=== PATIENT | female | born 1995 | race Caucasian/White ===

== ENCOUNTER 2021-08-22 15:49 | Emergency (ER) | payer MEDICAID, SELFPAY ==
[2021-08-22 16:03] VITALS: BP 135/83; BP 99/50; PULSE 102; RESP 16; TEMP 37.3; O2SAT 97; BMI 23.4
--- NOTE | 2021-08-22 16:56 | ED_ITS ---
HPI - General Adult General Chief complaint: General Medical Stated complaint: numbness down bilateral legs Time Seen by Provider: 08/22/21 16:10 Source: patient Mode of arrival: ambulatory Limitations: no limitations History of Present Illness HPI narrative: Patient with no significant back problems noticed lower back pain and bilateral leg numbness started and after noon today no nausea no vomiting no diarrhea no urinary symptoms patient did have some low-grade fever also complaining of mild sore throat patient already been vaccinated against COVID-19 check the home COVID-19 test at home which was negative, on arrival patient temperature was 101.6 degrees denies any IV drug use no bladder or bowel involvement able to ambulate. Related Data Previous Rx's Medication Instructions Recorded ibuprofen 600 mg tablet 600 mg PO Q6H PRN #20 tab 08/22/21 Allergies Allergy/AdvReac Type Severity Reaction Status Date / Time No Known Allergies Allergy Verified 08/22/21 17:08 Review of Systems Review of Systems: Yes all other systems are reviewed and are negative [facility] Social History Social History Advance Directives: No Advance Directives Information Provided: No Physical Exam ED Vital Signs: Vital Signs - 24 hr 08/22/21 16:03 Temperature 99.1 F Pulse Rate 102 H Respiratory Rate 16 Blood Pressure 135/83 Pulse Oximetry 97 BMI result Body Mass Index 23.4 Appearance: Alert. Oriented X3. No acute distress. FEBRILE TO TOUCH TEMPERATURE 101.6 DEGREES Eyes: No pallor or icterus ENT: Pharynx normal. Oral Mucosa moist Neck: Normal inspection. Neck supple. CVS: Normal heart rate and rhythm. Pulses normal. Respiratory: No respiratory distress. Equal air entry bilateral, no wheezing/rales/rhonchi Abdomen: Soft and nontender. Bowel sounds are present, no mass palpable, no CVA tenderness Skin: Skin warm and dry. Normal skin color. Normal skin turgor. Back: No focal tenderness of the back patient able to ambulate reflexes normal sensation normal Extremities: No lower extremity edema. No calf tenderness Neuro: Oriented X 3. No motor deficit. No sensory deficit.No cerebellar signs , cranial nerves II-XII intact DTR 2 + Medical Decision Making MDM Narrative Medical decision making narrative: Patient with nonspecific weakness able to ambulate no focal tenderness of the spine not IV drug user sed rate normal CRP of 0.75 patient able to ambulate in the ER patient's symptoms is from COVID-19 with overall weakness at this time p atient has no shortness of breath saturating 97% at room air Lab Data Lab results reviewed: Yes I reviewed the patient's lab results. Result diagrams: 08/22/21 17:22 08/22/21 17:22 Labs: Lab Results 08/22/21 08/22/21 08/22/21 Range/Units 17:22 17:22 17:22 WBC 6.8 (4.8-10.8) X10*3/uL RBC 4.58 (4.20-5.50) X10*6/uL Hgb 14.0 (12.0-16.0) g/dl Hct 41.0 (37.0-47.0) % MCV 89.5 (80.0-98.0) fL MCH 30.6 (27.0-33.0) pg MCHC 34.1 (31.0-35.0) g/dl RDW 11.7 (11.0-16.0) % Plt Count 177 (160-400) X10*3/uL MPV 11.0 (9.4-12.3) fL Immature Gran % (Auto) 0.3 (0.0-0.4) % Neut % (Auto) 88.0 H (45-73) % Lymph % (Auto) 3.8 L (20-40) % [place] % (Auto) 7.5 (2-11) % Eos % (Auto) 0.0 (0-4) % Baso % (Auto) 0.4 (0-2) % Lymph # (Auto) 0.3 L (1.2-4.9) X10*3/uL [place] # (Auto) 0.5 (0.1-1.2) X10*3/uL Eos # (Auto) 0.0 (0.0-0.4) X10*3/uL Baso # (Auto) 0.0 (0.0-0.2) X10*3/uL Abs Immat Gran (auto) 0.02 (0.00-0.03) X10*3/uL Absolute Neuts (auto) 6.0 (2.0-8.3) x10*3/uL Absolute Nucleated RBC 0.000 (0.0-0.012) X10*3/uL Nucleated RBC % (auto) 0.0 (0.0-0.2) /100WBC ESR (0-20) MM/HR Sodium 139 (135-145) mmol/L Potassium 3.7 (3.3-5.1) mmol/L Chloride 105 (96-108) mmol/L Carbon Dioxide 24 (22-29) mmol/L Anion Gap 14 (12-20) BUN 8 L (9-16) mg/dL Creatinine 0.70 (0.5-1.4) mg/dL Estim Creat Clear Calc 104.2 Estimated GFR > 60 Random Glucose 94 (60-115) mg/dL Lactic Acid 1.0 (0.5-2.0) mmol/L Calcium 9.1 (8.4-10.2) mg/dL Total Bilirubin 0.5 (0.0-1.0) mg/dL AST 23 (5-31) U/L ALT 23 (0-31) U/L Alkaline Phosphatase 84 (39-117) U/L C-Reactive Protein 0.75 H (< or = 0.50) mg/dL Total Protein 6.9 (6.5-8.0) g/dL Albumin 4.4 (3.5-5.0) g/dL Urine Color Urine Appearance Urine pH (5.0-8.0) Ur Specific [place] (1.005-1.025) Urine Protein (NEG-TRACE) MG/DL Urine Glucose (UA) (NEG) MG/DL Urine Ketones (NEG) MG/DL Urine Blood (NEG) Urine Nitrite (NEG) Ur Leukocyte Esterase (NEG) COVID-19 (CARMELLA) (Negative) COVID-19 Clin Com Influenza Type A (WILBER) (Negative) Influenza Type B (WILBER) (Negative) Influenza A & B Note S. pyogenes GrpA WILBER (Negative) 08/22/21 08/22/21 08/22/21 Range/Units 17:22 17:30 17:30 WBC (4.8-10.8) X10*3/uL RBC (4.20-5.50) X10*6/uL Hgb (12.0-16.0) g/dl Hct (37.0-47.0) % MCV (80.0-98.0) fL MCH (27.0-33.0) pg MCHC (31.0-35.0) g/dl RDW (11.0-16.0) % Plt Count (160-400) X10*3/uL MPV (9.4-12.3) fL Immature Gran % (Auto) (0.0-0.4) % Neut % (Auto) (45-73) % Lymph % (Auto) (20-40) % [place] % (Auto) (2-11) % Eos % (Auto) (0-4) % Baso % (Auto) (0-2) % Lymph # (Auto) (1.2-4.9) X10*3/uL [place] # (Auto) (0.1-1.2) X10*3/uL Eos # (Auto) (0.0-0.4) X10*3/uL Baso # (Auto) (0.0-0.2) X10*3/uL Abs Immat Gran (auto) (0.00-0.03) X10*3/uL Absolute Neuts (auto) (2.0-8.3) x10*3/uL Absolute Nucleated RBC (0.0-0.012) X10*3/uL Nucleated RBC % (auto) (0.0-0.2) /100WBC ESR 5 (0-20) MM/HR Sodium (135-145) mmol/L Potassium (3.3-5.1) mmol/L Chloride (96-108) mmol/L Carbon Dioxide (22-29) mmol/L Anion Gap (12-20) BUN (9-16) mg/dL Creatinine (0.5-1.4) mg/dL Estim Creat Clear Calc Estimated GFR Random Glucose (60-115) mg/dL Lactic Acid (0.5-2.0) mmol/L Calcium (8.4-10.2) mg/dL Total Bilirubin (0.0-1.0) mg/dL AST (5-31) U/L ALT (0-31) U/L Alkaline Phosphatase (39-117) U/L C-Reactive Protein (< or = 0.50) mg/dL Total Protein (6.5-8.0) g/dL Albumin (3.5-5.0) g/dL Urine Color Urine Appearance Urine pH (5.0-8.0) Ur Specific [place] (1.005-1.025) Urine Protein (NEG-TRACE) MG/DL Urine Glucose (UA) (NEG) MG/DL Urine Ketones (NEG) MG/DL Urine Blood (NEG) Urine Nitrite (NEG) Ur Leukocyte Esterase (NEG) COVID-19 (CARMELLA) (Negative) COVID-19 Clin Com Influenza Type A (WILBER) Negative (Negative) Influenza Type B (WILBER) Negative (Negative) Influenza A & B Note See Note S. pyogenes GrpA WILBER Negative (Negative) 08/22/21 08/22/21 Range/Units 17:30 17:36 WBC (4.8-10.8) X10*3/uL RBC (4.20-5.50) X10*6/uL Hgb (12.0-16.0) g/dl Hct (37.0-47.0) % MCV (80.0-98.0) fL MCH (27.0-33.0) pg MCHC (31.0-35.0) g/dl RDW (11.0-16.0) % Plt Count (160-400) X10*3/uL MPV (9.4-12.3) fL Immature Gran % (Auto) (0.0-0.4) % Neut % (Auto) (45-73) % Lymph % (Auto) (20-40) % [place] % (Auto) (2-11) % Eos % (Auto) (0-4) % Baso % (Auto) (0-2) % Lymph # (Auto) (1.2-4.9) X10*3/uL [place] # (Auto) (0.1-1.2) X10*3/uL Eos # (Auto) (0.0-0.4) X10*3/uL Baso # (Auto) (0.0-0.2) X10*3/uL Abs Immat Gran (auto) (0.00-0.03) X10*3/uL Absolute Neuts (auto) (2.0-8.3) x10*3/uL Absolute Nucleated RBC (0.0-0.012) X10*3/uL Nucleated RBC % (auto) (0.0-0.2) /100WBC ESR (0-20) MM/HR Sodium (135-145) mmol/L Potassium (3.3-5.1) mmol/L Chloride (96-108) mmol/L Carbon Dioxide (22-29) mmol/L Anion Gap (12-20) BUN (9-16) mg/dL Creatinine (0.5-1.4) mg/dL Estim Creat Clear Calc Estimated GFR Random Glucose (60-115) mg/dL Lactic Acid (0.5-2.0) mmol/L Calcium (8.4-10.2) mg/dL Total Bilirubin (0.0-1.0) mg/dL AST (5-31) U/L ALT (0-31) U/L Alkaline Phosphatase (39-117) U/L C-Reactive Protein (< or = 0.50) mg/dL Total Protein (6.5-8.0) g/dL Albumin (3.5-5.0) g/dL Urine Color YELLOW Urine Appearance CLEAR Urine pH 7.0 (5.0-8.0) Ur Specific [place] 1.010 (1.005-1.025) Urine Protein NEG (NEG-TRACE) MG/DL Urine Glucose (UA) NEG (NEG) MG/DL Urine Ketones 40 (NEG) MG/DL Urine Blood NEG (NEG) Urine Nitrite NEG (NEG) Ur Leukocyte Esterase NEG (NEG) COVID-19 (CARMELLA) Positive A (Negative) COVID-19 Clin Com See Note Influenza Type A (WILBER) (Negative) Influenza Type B (WILBER) (Negative) Influenza A & B Note S. pyogenes GrpA WILBER (Negative) Discharge Plan Discharge Clinical Impression: COVID-19 Patient Disposition: Home, Self-Care Instructions: COVID-19 (Coronavirus Disease 2019) (ED) Additional Instructions: Keep hydrated Tylenol / Motrin for the fever body aches COVID-19 precautions as advised Report to the ER if increased shortness of breath Prescriptions: New ibuprofen 600 mg tablet 600 mg PO Q6H PRN (Reason: pain) Qty: 20 0RF
[2021-08-22 17:38] LABS: MANUAL DIFF FLAG NO
[2021-08-22 17:47] LABS: Appearance Urine CLEAR; Color Urine YELLOW; Glucose Urine UA NEG (NEG); Leukocyte Esterase Urine NEG (NEG); Nitrite Urine NEG (NEG); Urine Blood NEG (NEG); Urine Ketones 40 MG/DL (NEG); Urine Protein NEG (NEG-TRACE)
[2021-08-22 17:48] LABS: Basophils Percent Auto 0.4 % (0-2); Imm Gran Abs Auto 0.02 X10*3/uL (0.00-0.03); Imm Gran Pct Auto 0.3 % (0.0-0.4); Lymphocytes Absolute Auto 0.3 X10*3/uL (1.2-4.9); Lymphocytes Percent Auto 3.8 % (20-40); Mean Corpuscular HGB Conc 34.1 g/dl (31.0-35.0); Mean Corpuscular Hemoglobin 30.6 pg (27.0-33.0); Mean Corpuscular Volume 89.5 fL (80.0-98.0); Monocytes Absolute Auto 0.5 X10*3/uL (0.1-1.2); Monocytes Percent Auto 7.5 % (2-11); Platelet Count 177 X10*3/uL (160-400); Red Blood Count 4.58 X10*6/uL (4.20-5.50); Red Cell Distribution Width 11.7 % (11.0-16.0); White Blood Count 6.8 X10*3/uL (4.8-10.8)
[2021-08-22 17:52] LABS: COVID-19 Test Positive (Negative)
[2021-08-22 17:54] LABS: Strep A Nucleic Acid Negative (Negative)
[2021-08-22 17:56] LABS: Alanine Aminotransferase 23 U/L (0-31); Albumin Level 4.4 g/dL (3.5-5.0); Alkaline Phosphatase 84 U/L (39-117); Anion Gap 14 (12-20); Aspartate Amino Transferase 23 U/L (5-31); Bilirubin Total 0.5 mg/dL (0.0-1.0); Blood Urea Nitrogen 8 mg/dL (9-16); C Reactive Protein 0.75 mg/dL (< or = 0.50); Calcium 9.1 mg/dL (8.4-10.2); Carbon Dioxide 24 mmol/L (22-29); Chloride 105 mmol/L (96-108); Creatinine Clr Calc Pharmacy 104.2; Estimated Glomerular Filt Rate > 60; Glucose Random 94 mg/dL (60-115); Potassium 3.7 mmol/L (3.3-5.1); Sodium 139 mmol/L (135-145); Total Protein 6.9 g/dL (6.5-8.0)
[2021-08-22 18:01] LABS: IDNOW Serial# 16C4AD1C; Influenza A Negative (Negative); Influenza B2 Negative (Negative)
[2021-08-22] MEDS: 0.9 % Sodium Chloride 1,000 ML 999 ML IV (18:06)
[2021-08-22] MEDS: Ketorolac Tromethamine 30 MG/ML VIAL IVPUSH (18:09)
[2021-08-22 18:36] LABS: Erythrocyte Sedimentation Rate 5 MM/HR (0-20)
== END 2021-08-22 19:11 | disposition home or self-care (01) ==
PROVIDERS: Emergency Provider Internal Medicine
DX: U07.1 COVID-19 (principal); R50.9 Fever, unspecified
CPT/HCPCS: 36415; 80053; 81003; 83605; 85025; 85652; 86140; 87040; 87502; 87635; 87651; 96361; 96374; 99284; 99285; J1885

== ENCOUNTER 2022-07-21 08:30 | Emergency (ER) | payer OTHER, SELFPAY ==
--- NOTE | ~2022-07-21 | XR_ITS ---
EXAMINATION: XR KNEE, RIGHT CLINICAL INFORMATION: Fall with right knee pain COMPARISON: None TECHNIQUE: Four views of the right knee. FINDINGS: Bones and soft tissues are normal. No fracture or joint effusion. Alignment is anatomic. Joint spaces are well maintained. No abnormal soft tissue calcification. XR/XR knee RT 4V IMPRESSION: Normal right knee.
[2022-07-21 08:43] VITALS: BP 112/64; PULSE 82; RESP 20; TEMP 37.1; O2SAT 96; BMI 25.7
[2022-07-21] MEDS: Ibuprofen 800 MG TABLET PO (11:37)
--- NOTE | 2022-07-21 13:15 | PC.NURSE ---
suture site cleansed with ns followed by nonstick, followed by kerlix, tape and oleksandr wrap- well tolerated by pt
--- NOTE | 2022-07-21 13:16 | ED_ITS ---
HPI - General Adult General Chief complaint: Fall Stated complaint: Fall/R knee inj Time Seen by Provider: 07/21/22 11:00 Source: patient Mode of arrival: ambulatory Limitations: no limitations History of Present Illness HPI narrative: 26-year-old female presents to the ED for right knee pain after fall. Patient s tates she tripped due to slipping on ice and fell onto her right knee. Patient denies hitting head or loss of consciousness. Patient states no other physical complaints. Patient has right knee laceration Related Data Previous Rx's Medication Instructions Recorded ibuprofen 600 mg tablet 600 mg PO Q6H PRN pain #20 tabs 08/22/21 naproxen 500 mg tablet 500 mg PO BID PRN pain 7 days #14 07/21/22 tabs Allergies Allergy/AdvReac Type Severity Reaction Status Date / Time No Known Allergies Allergy Verified 08/22/21 17:08 Review of Systems Review of Systems: RIght knee laceration after fall Yes all other systems are reviewed and are negative [facility] Social History Social History Advance Directives: No Advance Directives Information Provided: No Physical Exam ED Vital Signs: Vital Signs - 24 hr 07/21/22 08:43 Temperature 98.8 F Pulse Rate 82 Respiratory Rate 20 Blood Pressure 112/64 Pulse Oximetry 96 Oxygen Delivery Method Room Air BMI result Body Mass Index 25.7 Const General: cooperative, healthy appearing, comfortable, no acute distress, well developed, alert, awake and Physically active Orientation/consciousness: oriented to person, oriented to place, oriented to time and patient oriented x3 HENMT Head: Yes normal to inspection, Yes No palpable skull fracture present, Yes normocephalic and Yes atraumatic Ears: hearing grossly normal bilaterally, external ears normal, TM normal on the left, EAC's normal and mastoids normal General nose exam: Normal external nose present and Normal nares present Face and sinus: Yes normal facial exam Mouth: Normal oral and palatal mucosa present and lip normal Throat: Yes posterior oropharynx normal, Yes tonsils normal and Yes uvula midline Eyes General: appearance normal, both eyes and all related structures Neck Neck: Yes normal visual inspection, Yes full ROM, Yes no lymphadenopathy, Yes no meningeal signs, Yes trachea midline, Yes supple, No anterior neck swelling and No tender Chest Chest palpation & inspection: normal inspection of the chest and normal palpation of entire chest wall Resp Effort & Inspection: normal respiratory effort and able to speak in complete sentences Auscultation: clear to auscultation bilaterally Cardio Jugular venous distension: no JVD Heart sounds: S1 normal heart sound present and S2 normal heart sound present GI Inspection: Yes normal to inspection and No abdominal wall ecchymosis Palpation (GI): Soft to palpation, not firm, nontender, no guarding and not rigid General: No CVA tenderness and Yes no CVA tenderness Back/Spine/Pelvis Back: no CVA tenderness, No CVA tenderness and No back tenderness Skin Other: Right knee laceration Neuro General: oriented to person, oriented to place, oriented to time, patient oriented x3, gait normal, tone normal, moves all extremities, Normal light touch and pain sensation, no meningeal signs, no focal motor deficits, CN's II-XI intact bilaterally and normal sensation to monofilament Extrem General: Yes normal to inspection and Yes full ROM Knee images: 1. Positive for laceration. Bleeding controlled. Patient has complete range o f motion of knee. Negative for crepitus, ecchymosis, erythema, or deformity. Motor/neuro/vascular exam of lower extremity intact Psych Appearance: grossly normal, well kempt and not disheveled Course Course Course Narrative: Patient up-to-date with tetanus. Right knee x-ray ordered. Reevaluation(s) Reevaluation #1: Laceration clean with Betadine iodine and normal saline. Lidocaine 2% 6 mL was used for anesthesia. Size 3 pearly sutures used for laceration repair. Four sutures placed. Time: 13:21 Medications Administered Discontinued Medications Generic Name Dose Route Start Last Admin Trade Name Lucas PRN Reason Stop Dose Admin Ibuprofen 800 mg 07/21/22 11:12 07/21/22 11:37 Ibuprofen 800 Mg Tablet PO 07/21/22 11:13 800 mg ONCE ONE Administration Lidocaine HCl 2 ml 07/21/22 11:12 07/21/22 11:37 Lidocaine Hcl 2% 2 Ml Vial INFILTRATI 07/21/22 11:13 2 ml ONCE ONE Administration Lidocaine HCl 2 ml 07/21/22 11:12 07/21/22 11:37 Lidocaine Hcl 2% 2 Ml Vial INFILTRATI 07/21/22 11:13 2 ml ONCE ONE Administration Lidocaine HCl 2 ml 07/21/22 11:12 07/21/22 11:37 Lidocaine Hcl 2% 2 Ml Vial INFILTRATI 07/21/22 11:13 2 ml ONCE ONE Administration Medical Decision Making Medical Decision Making MDM Narrative: 26 yold female Fall and right knee laceration. Patient not in any distress. Right knee x-ray normal. Patient normal gait. Laceration repaired. Differential Diagnosis Differential Diagnoses: The differential diagnosis associated with the presentation includes (Fracture, dislocation, sprain, laceration,) Independent Interpretation I performed an independent interpretation of an: Plain X-Ray Radiology Impression Discussion of test interpretation with radiology: I have reviewed the radiologist's reading. Prescription Management I considered prescription management with: Pain Medication (naproxen) Discharge Plan Discharge Clinical Impression: Knee laceration Patient Disposition: Home, Self-Care Instructions: Laceration (ED) Additional Instructions: Return to the ED immediately for any swelling, redness, pus discharge, foul odor from wound, fever, chills, any other concerning symptoms. Sutures should be removed in 9 days. We talked with the primary care provider Prescriptions: New naproxen 500 mg tablet 500 mg PO BID PRN (Reason: pain) 7 Days Qty: 14 0RF No Action ibuprofen 600 mg tablet 600 mg PO Q6H PRN (Reason: pain) Qty: 20 0RF Interventions: ED Discharge Assessment Last Done: 07/21/22 13:30 Discharge Date/Time: 07/21/22 13:30 Print Language: Lithuanian
== END 2022-07-21 13:30 | disposition home or self-care (01) ==
PROVIDERS: Emergency Provider Emergency Medicine
DX: S81.011A Laceration without foreign body, right knee, initial encounter (principal); W00.0XXA Fall on same level due to ice and snow, initial encounter; Y93.01 Activity, walking, marching and hiking; Y92.480 Sidewalk as the place of occurrence of the external cause; Y99.9 Unspecified external cause status
CPT/HCPCS: 12001; 73564; 99283; 99284

== ENCOUNTER 2022-07-30 08:40 | Emergency (ER) | payer OTHER, SELFPAY ==
[2022-07-30 08:41] VITALS: BP 116/62; PULSE 67; RESP 16; TEMP 35.9; O2SAT 99; BMI 25.7
--- NOTE | 2022-07-30 09:08 | ED.SKABFB ---
HPI - Skin/Abscess/Foreign Bdy General Chief complaint: Skin/Abscess/Foreign Body Stated complaint: Suture removal Time Seen by Provider: 07/30/22 09:07 Source: patient and old records reviewed Mode of arrival: ambulatory Limitations: no limitations History of Present Illness HPI narrative: 26-year-old female presents to the ER for evaluation of a laceration to her right knee, sustained 9 days ago requiring 4 sutures which were placed here. Patient reports no issues with wound healing. The area has scabbed over. There is some surrounding bruising but overall she is feeling better. She denies any redness or drainage from the area. No mobility issues, she has full range of motion of the knee. complaint: laceration Onset (ago): day(s) (9) Tetanus up to date: yes Location: RLE Severity: mild Severity scale (1-10): 2 Quality: aching Pain Consistency: intermittent Relieving factors: none Exacerbating factors: palpation Context: none Associated symptoms: denies other symptoms Treatments prior to arrival: none Related Data Previous Rx's Medication Instructions Recorded ibuprofen 600 mg tablet 600 mg PO Q6H PRN pain #20 tabs 08/22/21 naproxen 500 mg tablet 500 mg PO BID PRN pain 7 days #14 07/21/22 tabs Allergies Allergy/AdvReac Type Severity Reaction Status Date / Time morphine Allergy Unconscious Verified 07/30/22 08:42 Review of Systems Review of Systems: Yes all other systems are reviewed and are negative [facility] Social History Social History Advance Directives: No Advance Directives Information Provided: No Physical Exam Vital Signs: Vital Signs: Last Vital Signs Temp 96.6 F L 07/30/22 08:41 Pulse 67 07/30/22 08:41 Resp 16 07/30/22 08:41 BP 116/62 07/30/22 08:41 Pulse Ox 99 07/30/22 08:41 O2 Del Method 07/30/22 08:41 BMI result Body Mass Index 25.7 Appearance: Alert. Oriented X3. No acute distress. HEENT: normal inspection Respiratory: No respiratory distress. Speaks in complete sentences Skin: Skin warm and dry. Normal skin color. Normal skin turgor. No rashes. Extremities: Right lower extremity with a scabbed over irregularly shaped wound over the tibial tuberosity, no surrounding erythema or drainage. Mild tenderness. Four sut[address]. Wound is well approximated and well healed. Neuro: Oriented X 3. Grossly normal, nonfocal. Steady gait Medical Decision Making Medical Decision Making MDM Narrative: 18-year-old female presents to the ER for evaluation of suture removal to a laceration her right knee that was stained 9 days ago. She denies any issues with wound healing. She denies any signs or symptoms of infection. Area was cleaned with alcohol and 4 sutures were successfully removed. Wound is adequately healed without any evidence of dehiscence or delayed wound healing. We discussed further wound care. She is stable for discharge home. Differential Diagnosis Differential Diagnoses: The differential diagnosis associated with the presentation includes Appropriately healing laceration, delayed wound healing, less likely cellulitis or infection External Record Review External record reviewed: Outpatient record Discharge Plan Discharge Clinical Impression: Visit for suture removal Patient Disposition: Home, Self-Care Instructions: Stitches Removal (ED) Additional Instructions: Use Moderna which is an [id number] cream to help with preventing a scar Prescriptions: No Action ibuprofen 600 mg tablet 600 mg PO Q6H PRN (Reason: pain) Qty: 20 0RF naproxen 500 mg tablet 500 mg PO BID PRN (Reason: pain) 7 Days Qty: 14 0RF
== END 2022-07-30 09:39 | disposition home or self-care (01) ==
PROVIDERS: Emergency Provider Emergency Medicine; PCP Internal Medicine
DX: Z48.02 Encounter for removal of sutures (principal)
CPT/HCPCS: 99282